=== PATIENT | female | born 1965 | race Caucasian/White ===

== ENCOUNTER 2020-12-28 19:58 | Emergency (ER) | payer MEDICARE, BC ==
[2020-12-28 21:09] LABS: HEMOGLOBIN 13.5 gm/dl (12.3-15.3); RED BLOOD COUNT 4.33 M/UL (4.00-5.10); WHITE BLOOD COUNT 6.9 K/UL (4.5-11.0)
[2020-12-28 21:18] LABS: BUN/CREATININE RATIO 18 (0-10)
[2020-12-28] MEDS ORDERED: PREDNISONE10 MG PO (21:40)
[2020-12-28] MEDS ORDERED: ACYCLOVIR400 MG PO (21:40)
== END 2020-12-28 21:56 | disposition home or self-care (01) ==
LOC: ER1 19:58
PROVIDERS: Physician Assistant
DX: G51.0 Bell's palsy (principal); I10 Essential (primary) hypertension; E11.9 Type 2 diabetes mellitus without complications
CPT/HCPCS: 36415; 70450; 80053; 85025; 85652; 86140; 93005; 99285

== ENCOUNTER 2021-03-31 04:18 | Emergency (ER) | payer MEDICARE, BC ==
[~2021-03-31 04:18] MED LIST: ACYCLOVIR400 MG PO; PREDNISONE10 MG PO
[2021-03-31] MEDS ORDERED: IBU800 MG PO (08:40)
== END 2021-03-31 09:13 | disposition home or self-care (01) ==
LOC: ER1 04:18
DX: S16.1XXA Strain of muscle, fascia and tendon at neck level, initial encounter (principal); F17.210 Nicotine dependence, cigarettes, uncomplicated; W06.XXXA Fall from bed, initial encounter; Y92.009 Unspecified place in unspecified non-institutional (private) residence as the place of occurrence of the external cause
CPT/HCPCS: 72125; 99283

== ENCOUNTER 2022-02-18 08:11 | Emergency (ER) | payer MEDICARE, BC ==
[~2022-02-18 08:11] MED LIST changes: +IBU800 MG PO
== END 2022-02-18 09:30 | disposition home or self-care (01) ==
LOC: ER1 08:11
DX: S80.02XA Contusion of left knee, initial encounter (principal); S80.01XA Contusion of right knee, initial encounter; S90.31XA Contusion of right foot, initial encounter; W19.XXXA Unspecified fall, initial encounter; Y92.009 Unspecified place in unspecified non-institutional (private) residence as the place of occurrence of the external cause
CPT/HCPCS: 73562; 73630; 99283